=== PATIENT | male | born 1935 | race Caucasian/White ===

== ENCOUNTER 2023-08-18 14:18 | Inpatient (IN) | payer OTHER ==
[~2023-08-18] VITALS: Ht 182.9 cm; Wt 75.3 kg
[2023-08-18 14:23] VITALS: BP 104/72; PULSE 83; RESP 18; TEMP 98.6; O2SAT 98
[2023-08-18] MEDS: NACL 0.9% 500 ML IV ONE (15:51)
[2023-08-18 15:57] VITALS: O2SAT 93
[2023-08-18 16:36] LABS: BASOPHILS % (AUTO) 0.3 % (0.0-2.0); EOSINOPHILS # (AUTO) 0.2 K/uL (0-0.4); HEMATOCRIT 33.5 % (36-52); HEMOGLOBIN 11.4 g/dL (12.0-18.0); LYMPHOCYTES # (AUTO) 0.9 K/uL (2.0-11.5); LYMPHOCYTES % (AUTO) 7.4 % (20.5-51.1); MEAN CORPUSCULAR HEMOGLOBIN 29 pg (27-31); MEAN CORPUSCULAR HGB CONC 34 g/dL (33-37); MEAN CORPUSCULAR VOLUME 85.3 fL (80-94); MONOCYTES # (AUTO) 1.1 K/uL (0.8-1.0); MONOCYTES % (AUTO) 9.3 % (1.7-9.3); NEUTROPHILS # (AUTO) 9.4 K/uL (1.8-7.7); PLATELET COUNT (AUTO) 207 K/uL (140-450); RED BLOOD CELL COUNT(AUTO) 3.93 MIL/uL (4.20-6.10); RED CELL DISTRIBUTION WIDTH 15.9 % (11.6-13.7); WHITE BLOOD COUNT (AUTO) 11.7 K/uL (4.8-10.8)
[2023-08-18 16:44] LABS: ANION GAP 8.1 (8-16); CALCIUM 8.6 mg/dL (8.5-10.1); CARBON DIOXIDE 29.7 mmol/L (21-32); CHLORIDE 109 mmol/L (98-107); CREATININE 0.7 mg/dL (0.6-1.3); GLUCOSE 110 mg/dL (74-106); POTASSIUM 3.8 mmol/L (3.5-5.1); SODIUM SERUM 143 mmol/L (136-145); UREA NITROGEN, BLOOD 31 mg/dL (7-18)
[2023-08-18 16:53] LABS: ALANINE AMINOTRANSFERASE 17 U/L (12-78); ALBUMIN 2.2 g/dL (3.4-5.0); ALKALINE PHOSPHATASE 94 U/L (50-136); ASPARTATE AMINOTRANSFERASE 15 U/L (15-37); BILIRUBIN,DIRECT 0.3 mg/dL (0.0-0.3); CREATINE KINASE, TOTAL 33 U/L (39-308); TOTAL BILIRUBIN 0.7 mg/dL (0.0-1.0)
[2023-08-18] MEDS ORDERED: APIX5TAB PO (17:38)
[2023-08-18] MEDS ORDERED: TYL650S (17:38)
[2023-08-18] MEDS ORDERED: RAMI10CA PO (17:38)
[2023-08-18] MEDS ORDERED: LEVO0.0712 PO (17:38)
[2023-08-18] MEDS ORDERED: LIDO1ADH47 TP (17:38)
[2023-08-18] MEDS ORDERED: FINA5TAB5 PO (17:38)
[2023-08-18] MEDS ORDERED: ATOR80TA27 PO (17:38)
[2023-08-18] MEDS ORDERED: TRAM50TA3 PO (17:38)
[2023-08-18] MEDS ORDERED: MULT-2253 PO (17:40)
[2023-08-18] MEDS ORDERED: METO-744 PO (17:40)
[2023-08-18] MEDS ORDERED: ACET-2619 PO (17:42)
[2023-08-18 17:46] LABS: APPEARANCE,URINE CLEAR (CLEAR); BILIRUBIN,URINE 1+ (NEGATIVE); BLOOD, URINE 3+ (NEGATIVE); COLOR,URINE YELLOW (YELLOW); LEUKOCYTE ESTERASE ,URINE NEGATIVE (NEGATIVE); NITRITE, URINE NEGATIVE (NEGATIVE); PROTEIN,URINE 3+ (NEGATIVE); UGLUCOSE NEGATIVE (NEGATIVE); UROBILINOGEN,URINE 0.2 EU/dL (0.2 - 1)
[2023-08-18 18:29] LABS: ICTOTEST NEGATIVE (NEGATIVE)
[2023-08-18 18:30] LABS: BACTERIA,URINE 1+ /HPF (None Seen); MUCUS,URINE 1+ /LPF (None Seen); RBC,URINE TOO NUMEROUS TO COUN /HPF (0-5); SQUAMOUS EPITHELIAL CELL,UR 4-10 (MOD) /LPF (0-3 (FEW)); TRICHOMONAS,URINE None Seen /HPF (None Seen); YEAST,URINE None Seen /HPF (None Seen)
[2023-08-18 18:43] LABS: INR 1.21 (0.8-1.2); PARTIAL THROMBOPLASTIN TIME 27.2 secs (22-35.6); PROTHROMBIN TIME 12.6 secs (10.8-13.4)
[2023-08-18 19:10] LABS: FLU A ANTIGEN negative (NEGATIVE); FLU B ANTIGEN negative (NEGATIVE)
[2023-08-18 19:19] LABS: MAGNESIUM 1.7 mg/dL (1.8-2.4); PHOSPHORUS 3.2 mg/dL (2.5-4.9)
[2023-08-18] MEDS: MAG SULF 2000 MG/WATER PREMIX 50 ML IV ONE (19:25)
[2023-08-18] MEDS ORDERED: cefTRIAXone 1,000 MG VIAL ONE (20:04)
[2023-08-18] MEDS: NACL 0.9% 1,000 ML IV SCH (23:20)
[2023-08-18] MEDS ORDERED: ONDANSETRON 4 MG/2 ML VIAL IVP PRN (23:35)
[2023-08-18] MEDS ORDERED: POTASSIUM CHLORIDE 10 MEQ TABER PO PRN (23:35)
[2023-08-18] MEDS ORDERED: ACETAMINOPHEN 325 MG TAB PO PRN (23:35)
[2023-08-19] MEDS: NACL 0.9% 1,000 ML IV SCH (00:09)
[2023-08-19 00:20] LABS: BASOPHILS # (AUTO) 0.1 K/uL (0.00-0.22); BASOPHILS % (AUTO) 0.6 % (0.0-2.0); EOSINOPHILS # (AUTO) 0.3 K/uL (0-0.4); EOSINOPHILS % (AUTO) 3.3 % (0.0-4.0); HEMATOCRIT 33.6 % (36-52); HEMOGLOBIN 11.6 g/dL (12.0-18.0); LYMPHOCYTES # (AUTO) 1.1 K/uL (2.0-11.5); LYMPHOCYTES % (AUTO) 10.5 % (20.5-51.1); MEAN CORPUSCULAR HEMOGLOBIN 30 pg (27-31); MEAN CORPUSCULAR HGB CONC 35 g/dL (33-37); MEAN CORPUSCULAR VOLUME 85.4 fL (80-94); MONOCYTES # (AUTO) 0.8 K/uL (0.8-1.0); MONOCYTES % (AUTO) 7.6 % (1.7-9.3); PLATELET COUNT (AUTO) 196 K/uL (140-450); RED BLOOD CELL COUNT(AUTO) 3.93 MIL/uL (4.20-6.10); RED CELL DISTRIBUTION WIDTH 16.2 % (11.6-13.7); WHITE BLOOD COUNT (AUTO) 10.3 K/uL (4.8-10.8)
[2023-08-19 00:31] LABS: ANION GAP 8.9 (8-16); CALCIUM 8.5 mg/dL (8.5-10.1); CARBON DIOXIDE 27.7 mmol/L (21-32); CHLORIDE 109 mmol/L (98-107); CREATININE 0.6 mg/dL (0.6-1.3); GLUCOSE 106 mg/dL (74-106); POTASSIUM 3.6 mmol/L (3.5-5.1); SODIUM SERUM 142 mmol/L (136-145); UREA NITROGEN, BLOOD 27 mg/dL (7-18)
[2023-08-19 00:36] LABS: INR 1.25 (0.8-1.2); PARTIAL THROMBOPLASTIN TIME 26.9 secs (22-35.6)
[2023-08-19 00:46] LABS: CHOL/HDL RATIO 2.1 (1-4.5); MAGNESIUM 2.3 mg/dL (1.8-2.4); PHOSPHORUS 2.9 mg/dL (2.5-4.9); THYROID STIMULATING HORMONE 2.26 uIU/mL (0.34-3.74)
[2023-08-19 00:48] LABS: LACTIC ACID 0.9 mmol/L (0.4-2.0)
[2023-08-19] MEDS: LEVOTHYROXINE 0.075 MG TAB PO SCH (06:30)
[2023-08-19 07:12] LABS: BASOPHILS # (AUTO) 0.1 K/uL (0.00-0.22); BASOPHILS % (AUTO) 0.6 % (0.0-2.0); EOSINOPHILS # (AUTO) 0.3 K/uL (0-0.4); EOSINOPHILS % (AUTO) 2.9 % (0.0-4.0); HEMATOCRIT 34.7 % (36-52); HEMOGLOBIN 11.8 g/dL (12.0-18.0); LYMPHOCYTES # (AUTO) 0.8 K/uL (2.0-11.5); LYMPHOCYTES % (AUTO) 9.3 % (20.5-51.1); MEAN CORPUSCULAR HEMOGLOBIN 29 pg (27-31); MEAN CORPUSCULAR HGB CONC 34 g/dL (33-37); MEAN CORPUSCULAR VOLUME 85.4 fL (80-94); MONOCYTES # (AUTO) 0.6 K/uL (0.8-1.0); MONOCYTES % (AUTO) 6.5 % (1.7-9.3); NEUTROPHILS # (AUTO) 7.2 K/uL (1.8-7.7); NEUTROPHILS % (AUTO) 80.7 % (42.2-75.2); PLATELET COUNT (AUTO) 206 K/uL (140-450); RED BLOOD CELL COUNT(AUTO) 4.07 MIL/uL (4.20-6.10); WHITE BLOOD COUNT (AUTO) 8.9 K/uL (4.8-10.8)
[2023-08-19 07:29] LABS: ANION GAP 11.1 (8-16); CALCIUM 8.5 mg/dL (8.5-10.1); CARBON DIOXIDE 26.7 mmol/L (21-32); CHLORIDE 109 mmol/L (98-107); CREATININE 0.6 mg/dL (0.6-1.3); GLUCOSE 97 mg/dL (74-106); POTASSIUM 3.8 mmol/L (3.5-5.1); SODIUM SERUM 143 mmol/L (136-145); UREA NITROGEN, BLOOD 25 mg/dL (7-18)
[2023-08-19 07:31] LABS: MAGNESIUM 2.2 mg/dL (1.8-2.4); PHOSPHORUS 2.9 mg/dL (2.5-4.9)
[2023-08-19 09:20] VITALS: O2SAT 100
[2023-08-19] MEDS: PANTOPRAZOLE 40 MG INJ VIAL IVP SCH (09:58)
[2023-08-19] MEDS: DOCUSATE SODIUM 100 MG GELCAP PO SCH (10:29)
[2023-08-19] MEDS: HYDROcodone/APAP 7.5/325 MG 1 TAB PO PRN (10:30)
[2023-08-19] MEDS: APIXABAN 2.5 MG TAB PO SCH (10:30)
[2023-08-19] MEDS: METOPROLOL SUCCINATE 50 MG TABER PO SCH (10:31)
[2023-08-19] MEDS: ATORVASTATIN 80 MG TAB PO SCH (10:31)
[2023-08-19] MEDS: MULTIVITAMIN 1 TAB PO SCH (10:31)
[2023-08-19] MEDS: FINASTERIDE 5 MG TAB PO SCH (10:32)
[2023-08-19] MEDS: lisinopriL 20 MG TAB PO SCH (10:32)
[2023-08-19 16:00] VITALS: BP 138/78; PULSE 81; PULSE 92; RESP 20; TEMP 97.7; O2SAT 98
[2023-08-19 20:00] VITALS: BP 104/59; PULSE 82; PULSE 89; PULSE 96; RESP 18; TEMP 96; O2SAT 99
[2023-08-20] VITALS (11 sets, daily range): BP systolic 121–176; BP diastolic 68–93; PULSE 53–104; RESP 18–20; TEMP 96.6–97.2; O2SAT 94–99
[2023-08-20 08:50] LABS: MAGNESIUM 1.9 mg/dL (1.8-2.4); PHOSPHORUS 2.6 mg/dL (2.5-4.9)
[2023-08-20 10:44] LABS: BASOPHILS # (AUTO) 0.1 K/uL (0.00-0.22); BASOPHILS % (AUTO) 0.9 % (0.0-2.0); EOSINOPHILS # (AUTO) 0.3 K/uL (0-0.4); HEMATOCRIT 34.2 % (36-52); HEMOGLOBIN 11.7 g/dL (12.0-18.0); LYMPHOCYTES % (AUTO) 10.9 % (20.5-51.1); MEAN CORPUSCULAR HEMOGLOBIN 29 pg (27-31); MEAN CORPUSCULAR HGB CONC 34 g/dL (33-37); MEAN CORPUSCULAR VOLUME 86.1 fL (80-94); MONOCYTES # (AUTO) 0.8 K/uL (0.8-1.0); MONOCYTES % (AUTO) 8.9 % (1.7-9.3); NEUTROPHILS # (AUTO) 7.2 K/uL (1.8-7.7); NEUTROPHILS % (AUTO) 76.3 % (42.2-75.2); PLATELET COUNT (AUTO) 198 K/uL (140-450); RED BLOOD CELL COUNT(AUTO) 3.98 MIL/uL (4.20-6.10); RED CELL DISTRIBUTION WIDTH 16.2 % (11.6-13.7); WHITE BLOOD COUNT (AUTO) 9.4 K/uL (4.8-10.8)
[2023-08-20 11:12] LABS: ANION GAP 10.5 (8-16); CALCIUM 8.8 mg/dL (8.5-10.1); CARBON DIOXIDE 26.7 mmol/L (21-32); CHLORIDE 109 mmol/L (98-107); CREATININE 0.8 mg/dL (0.6-1.3); GLUCOSE 108 mg/dL (74-106); POTASSIUM 4.2 mmol/L (3.5-5.1); SODIUM SERUM 142 mmol/L (136-145); UREA NITROGEN, BLOOD 23 mg/dL (7-18)
[2023-08-20] MEDS ORDERED: VANCOMYCIN PER PHARMACY MC PRN (14:55)
[2023-08-20] MEDS: VANCOMYCIN 1,000 MG in DEXTROSE 5% 250 ML IV SCH (15:55)
[2023-08-20] MEDS ORDERED: ZOLPIDEM 5 MG TAB PO PRN (21:50)
[2023-08-21] VITALS (7 sets, daily range): BP systolic 122–152; BP diastolic 66–81; PULSE 76–100; RESP 18–20; TEMP 96.2–98.3; O2SAT 93–100
[2023-08-21 07:19] LABS: BASOPHILS # (AUTO) 0.1 K/uL (0.00-0.22); BASOPHILS % (AUTO) 0.7 % (0.0-2.0); EOSINOPHILS # (AUTO) 0.4 K/uL (0-0.4); EOSINOPHILS % (AUTO) 5.1 % (0.0-4.0); HEMATOCRIT 32.3 % (36-52); HEMOGLOBIN 11.2 g/dL (12.0-18.0); LYMPHOCYTES # (AUTO) 0.9 K/uL (2.0-11.5); LYMPHOCYTES % (AUTO) 11.4 % (20.5-51.1); MEAN CORPUSCULAR HEMOGLOBIN 29 pg (27-31); MEAN CORPUSCULAR HGB CONC 35 g/dL (33-37); MEAN CORPUSCULAR VOLUME 84.8 fL (80-94); MONOCYTES # (AUTO) 0.7 K/uL (0.8-1.0); MONOCYTES % (AUTO) 8.3 % (1.7-9.3); NEUTROPHILS % (AUTO) 74.5 % (42.2-75.2); PLATELET COUNT (AUTO) 205 K/uL (140-450); RED BLOOD CELL COUNT(AUTO) 3.81 MIL/uL (4.20-6.10); RED CELL DISTRIBUTION WIDTH 16.2 % (11.6-13.7)
[2023-08-21 07:27] LABS: MAGNESIUM 1.7 mg/dL (1.8-2.4); PHOSPHORUS 3.6 mg/dL (2.5-4.9)
[2023-08-21 09:21] LABS: ANION GAP 13.5 (8-16); CALCIUM 8.4 mg/dL (8.5-10.1); CARBON DIOXIDE 23.3 mmol/L (21-32); CHLORIDE 106 mmol/L (98-107); CREATININE 0.6 mg/dL (0.6-1.3); GLUCOSE 109 mg/dL (74-106); POTASSIUM 3.8 mmol/L (3.5-5.1); SODIUM SERUM 139 mmol/L (136-145); UREA NITROGEN, BLOOD 21 mg/dL (7-18)
[2023-08-21] MEDS: VANCOMYCIN 750 MG in DEXTROSE 5% 250 ML IV SCH (10:46)
[2023-08-21] MEDS: MAG SULF 2000 MG/WATER PREMIX 50 ML IV PRN (18:22)
[2023-08-22] VITALS (7 sets, daily range): BP systolic 105–144; BP diastolic 72–84; PULSE 76–102; RESP 18; TEMP 97.8–98.2; O2SAT 98–100
[2023-08-22 07:03] LABS: BASOPHILS # (AUTO) 0.1 K/uL (0.00-0.22); BASOPHILS % (AUTO) 0.6 % (0.0-2.0); EOSINOPHILS # (AUTO) 0.5 K/uL (0-0.4); EOSINOPHILS % (AUTO) 5.3 % (0.0-4.0); HEMATOCRIT 30.6 % (36-52); HEMOGLOBIN 10.6 g/dL (12.0-18.0); LYMPHOCYTES # (AUTO) 1.2 K/uL (2.0-11.5); LYMPHOCYTES % (AUTO) 13.2 % (20.5-51.1); MEAN CORPUSCULAR HEMOGLOBIN 29 pg (27-31); MEAN CORPUSCULAR HGB CONC 35 g/dL (33-37); MEAN CORPUSCULAR VOLUME 84.5 fL (80-94); MONOCYTES # (AUTO) 0.6 K/uL (0.8-1.0); NEUTROPHILS # (AUTO) 6.5 K/uL (1.8-7.7); NEUTROPHILS % (AUTO) 73.9 % (42.2-75.2); PLATELET COUNT (AUTO) 202 K/uL (140-450); RED BLOOD CELL COUNT(AUTO) 3.62 MIL/uL (4.20-6.10); RED CELL DISTRIBUTION WIDTH 16.3 % (11.6-13.7); WHITE BLOOD COUNT (AUTO) 8.8 K/uL (4.8-10.8)
[2023-08-22 07:06] LABS: ANION GAP 9.6 (8-16); CALCIUM 8.1 mg/dL (8.5-10.1); CARBON DIOXIDE 27.5 mmol/L (21-32); CHLORIDE 105 mmol/L (98-107); CREATININE 0.7 mg/dL (0.6-1.3); GLUCOSE 104 mg/dL (74-106); POTASSIUM 4.1 mmol/L (3.5-5.1); SODIUM SERUM 138 mmol/L (136-145); UREA NITROGEN, BLOOD 21 mg/dL (7-18)
[2023-08-22 07:26] LABS: MAGNESIUM 1.8 mg/dL (1.8-2.4); PHOSPHORUS 4.1 mg/dL (2.5-4.9)
[2023-08-22] MEDS ORDERED: DOCU-299 PO (11:08)
[2023-08-23] VITALS: BP 151/97; PULSE 84; PULSE 90; RESP 17; TEMP 98.7; O2SAT 98
[2023-08-23] MEDS: hydrALAZINE 25 MG TAB PO PRN (00:03)
[2023-08-23 04:00] VITALS: BP 126/90; PULSE 100; PULSE 99; RESP 18; TEMP 98.3; O2SAT 96
[2023-08-23 07:00] LABS: BASOPHILS # (AUTO) 0.1 K/uL (0.00-0.22); BASOPHILS % (AUTO) 0.9 % (0.0-2.0); EOSINOPHILS # (AUTO) 0.4 K/uL (0-0.4); EOSINOPHILS % (AUTO) 4.9 % (0.0-4.0); HEMATOCRIT 31.6 % (36-52); HEMOGLOBIN 10.9 g/dL (12.0-18.0); LYMPHOCYTES # (AUTO) 0.9 K/uL (2.0-11.5); LYMPHOCYTES % (AUTO) 10.2 % (20.5-51.1); MEAN CORPUSCULAR HEMOGLOBIN 30 pg (27-31); MEAN CORPUSCULAR HGB CONC 35 g/dL (33-37); MEAN CORPUSCULAR VOLUME 85.2 fL (80-94); MONOCYTES # (AUTO) 0.6 K/uL (0.8-1.0); MONOCYTES % (AUTO) 7.1 % (1.7-9.3); NEUTROPHILS # (AUTO) 6.8 K/uL (1.8-7.7); NEUTROPHILS % (AUTO) 76.9 % (42.2-75.2); PLATELET COUNT (AUTO) 205 K/uL (140-450); RED BLOOD CELL COUNT(AUTO) 3.71 MIL/uL (4.20-6.10); RED CELL DISTRIBUTION WIDTH 16.6 % (11.6-13.7); WHITE BLOOD COUNT (AUTO) 8.9 K/uL (4.8-10.8)
[2023-08-23 07:14] LABS: MAGNESIUM 1.7 mg/dL (1.8-2.4); PHOSPHORUS 3.4 mg/dL (2.5-4.9)
[2023-08-23 07:25] LABS: ANION GAP 11.6 (8-16); CALCIUM 8.4 mg/dL (8.5-10.1); CARBON DIOXIDE 25.3 mmol/L (21-32); CHLORIDE 108 mmol/L (98-107); CREATININE 0.7 mg/dL (0.6-1.3); GLUCOSE 98 mg/dL (74-106); POTASSIUM 3.9 mmol/L (3.5-5.1); SODIUM SERUM 141 mmol/L (136-145); UREA NITROGEN, BLOOD 15 mg/dL (7-18)
[2023-08-23 08:00] VITALS: BP 140/78; PULSE 91; PULSE 93; RESP 18; TEMP 98; O2SAT 100
[2023-08-23 12:00] VITALS: BP 128/78; PULSE 85; PULSE 93; RESP 18; TEMP 97.8; O2SAT 100
== END 2023-08-23 14:50 | DRG 698 ==
LOC: MED 14:18 → MTU 20:05
DX: T83.518A Infection and inflammatory reaction due to other urinary catheter, initial encounter (principal); E43 Unspecified severe protein-calorie malnutrition; I69.354 Hemiplegia and hemiparesis following cerebral infarction affecting left non-dominant side; L98.428 Non-pressure chronic ulcer of back with other specified severity; N30.91 Cystitis, unspecified with hematuria; R31.9 Hematuria, unspecified; E83.42 Hypomagnesemia; F03.90 Unspecified dementia, unspecified severity, without behavioral disturbance, psychotic disturbance, mood disturbance, and anxiety; E03.9 Hypothyroidism, unspecified; E78.5 Hyperlipidemia, unspecified; E86.0 Dehydration; I10 Essential (primary) hypertension; N40.1 Benign prostatic hyperplasia with lower urinary tract symptoms; I25.10 Atherosclerotic heart disease of native coronary artery without angina pectoris; N18.9 Chronic kidney disease, unspecified; D63.1 Anemia in chronic kidney disease; I48.91 Unspecified atrial fibrillation; N28.1 Cyst of kidney, acquired; Z96.642 Presence of left artificial hip joint; Z95.2 Presence of prosthetic heart valve; Z88.8 Allergy status to other drugs, medicaments and biological substances; Z68.22 Body mass index [BMI] 22.0-22.9, adult; Z79.899 Other long term (current) drug therapy
CPT/HCPCS: 36415; 70450; 71045; 76770; 80048; 80076; 80202; 81001; 82140; 82150; 82550; 82948; 83036; 83605; 83690; 83735; 83880; 84100; 84443; 84484; 85025; 85610; 85730; 87040; 87081; 87086; 93005; 96361; 96365; 96366; 96367; 97112; 97163-GP; 97530; 99285; C9113; J0696; J3370; J3475; J7060; Q0092